=== PATIENT | female | born 1990 | race African-American/Black ===

== ENCOUNTER 2022-09-03 21:16 | Emergency (ER) | payer BC ==
[2022-09-03] MEDS ORDERED: Lidocaine 1% (PF) 30 ML VIAL ONE (23:04)
[2022-09-03] MEDS ORDERED: HYDROcodone/Acetaminophen 10/325 mg Tablet ONE (23:05)
== END 2022-09-04 00:09 | disposition home or self-care (01) ==
LOC: CSHERS 21:16
DX: L73.2 Hidradenitis suppurativa (principal); N61.1 Abscess of the breast and nipple
CPT/HCPCS: 10060; J2001

== ENCOUNTER 2022-10-16 06:57 | Emergency (ER) | payer SELFPAY ==
[2022-10-16] MEDS ORDERED: Bupivacaine PF 0.5% 30 ML VIAL ONE (07:18)
[2022-10-16] MEDS ORDERED: Ketorolac Tromethamine 30 MG/ML VIAL ONE (07:18)
== END 2022-10-16 07:36 | disposition home or self-care (01) ==
LOC: CSHERS 06:57
DX: K04.7 Periapical abscess without sinus (principal)
CPT/HCPCS: 64400; 96372; J1885; S0020

== ENCOUNTER 2022-10-16 17:48 | Emergency (ER) | payer SELFPAY ==
[2022-10-16] MEDS ORDERED: Ketorolac Tromethamine 30 MG/ML VIAL ONE (18:13)
== END 2022-10-16 18:17 | disposition home or self-care (01) ==
LOC: CSHERS 17:48
DX: K08.89 Other specified disorders of teeth and supporting structures (principal)
CPT/HCPCS: 96372; 99282; J1885